=== PATIENT | male | born 1945 | race Two or more races ===

== ENCOUNTER 2017-01-31 00:23 | Emergency (ER) | payer MEDICARE, BC ==
[~2017-01-31] VITALS: Ht 160 cm; Wt 64.9 kg
[2017-01-31] MEDS ORDERED: AMLO5TAB2 PO (01:10)
[2017-01-31] MEDS ORDERED: [UNRECOGNIZED DRUG - CODE] PO (01:13)
[2017-01-31 01:53] LABS: BLOOD UREA NITROGEN 28 mg/dL (7-18)
[2017-01-31 02:12] VITALS: BP 158/99
== END 2017-01-31 02:39 | disposition home or self-care (01) ==
LOC: ED 01:10
DX: I10 Essential (primary) hypertension (principal); R51 Headache; Z90.5 Acquired absence of kidney; J45.909 Unspecified asthma, uncomplicated
CPT/HCPCS: 36415; 80048; 82040; 85025; 93005; 99285